=== PATIENT | female | born 1975 | race Caucasian/White ===

== ENCOUNTER 2018-08-27 14:42 | Inpatient (IN) | payer OTHER ==
[~2018-08-27] VITALS: Ht 154.9 cm; Wt 125.9 kg
--- NOTE | ~2018-08-27 | HC ---
[facility] [place] [address] CONSULTATION Name: ERYN LEONARD Room #: 432- ADM IN M.R.#: [id number] Admission: 08/27/18 Attend Phys: Phu Alvarado MD Discharge: Date of : 77 Report #: [id number] THIS REPORT FOR: //name// CC: Phu Alvarado DATE OF SERVICE: 08/30/2018 WOUND CARE CONSULTATION PERSONAL PHYSICIAN: Phu Alvarado M.D. CHIEF COMPLAINT: Right lower extremity cellulitis. HISTORY OF PRESENT ILLNESS: This is a 42-year-old white female who I had seen at [facility] last week for progressive cellulitis of her right lower extremity. The patient had previously been admitted to [facility] for that same cellulitis and received 1 week of IV antibiotics and then was transferred to [facility] for further rehabilitation. However, I was asked to see the patient because of increasing erythema, warmth and tenderness of the leg and it appeared that the patient had ongoing cellulitis that was now failing outpatient oral therapy. The patient was admitted to the hospital under the care of Dr. Alvarado, started on IV antibiotics and was seen by Infectious Disease, Dr. Madrid. The patient today states her pain is markedly improved with the morphine, Silvadene compound that we added to her leg and then lightly covered this with Kerlix. The patient cannot tolerate tight wraps because of the pain. The patient admits that she has been very noncompliant as an outpatient with her lymphedema in regards to any type of compression. The patient has no open wounds at this time. PAST MEDICAL HISTORY: Significant for chronic hypertension, chronic liver disease, migraines, hyperthyroidism and chronic lymphedema. CURRENT MEDICATIONS: Multiple, I reviewed the patient's medication list. She is on IV antibiotics. DRUG ALLERGIES: TRAMADOL, KETOROLAC AND MELATONIN. SOCIAL HISTORY: The patient is . She does not smoke or drink alcohol. FAMILY HISTORY: Not pertinent to current medical condition. REVIEW OF SYSTEMS: CONSTITUTIONAL: The patient was having chills prior to the onset of this cellulitis, but denies fever at this time. EYES: No complaints. ENT: No complaints. [facility] [address] [place] [address] CONSULTATION Name: ERYN LEONARD Room #: 432-P [facility] IN ..#: [id number] Admission: 08/27/18 Attend Phys: Phu Alvarado MD Discharge: Date of : 77 Report #: [id number] CARDIAC: The patient denies chest pain or palpitations. Has chronic lower extremity lymphedema, right leg much greater than left. RESPIRATORY: The patient denies shortness of breath, cough or wheezes. GASTROINTESTINAL: The patient complains of decreased appetite, but no nausea, vomiting or diarrhea. GENITOURINARY: The patient denies urgency or frequency, but does complain of a possible vaginal bleeding, which is unusual for her. MUSCULOSKELETAL: No complaints. SKIN: The patient has cellulitis on the right lower extremity, which is extremely painful. PHYSICAL EXAMINATION: VITAL SIGNS: Temperature 36.7, pulse 79, respiratory rate 18 and BP 124/73. GENERAL: This is an alert and oriented x 3, morbidly obese white female who is in [id number] distress and pain. HEENT: Normocephalic, atraumatic. Mucous membranes are dry. Pupils are round. Sclerae are white. NECK: Supple and nontender. LUNGS: Clear. HEART: Regular, without murmur. ABDOMEN: Obese, soft, otherwise nontender. EXTREMITIES: Evaluation of the lower extremities reveals 4+ edema of the right lower extremity with increased erythema, warmth and tenderness; however, this is much improved from my exam 3 days ago. Distal neurovascular is otherwise intact. There are no open ulcerations noted on the right lower extremity. On the left lower extremity, the patient has chronic 3- to 4+ lymphedema, but no increased erythema or warmth. There are no open ulcerations on the left lower extremity. NEUROLOGIC: Cranial nerves 2-12 are grossly intact. Motor and sensory grossly intact. LABORATORY DATA: White count 2.1, hemoglobin 9.0 and platelet count is 102,000. Sed rate 71. Albumin is 2.1. C-reactive protein is 36.4. IMPRESSION: 1. Progressive cellulitis, right lower extremity, failed outpatient therapy, now improving on IV antibiotics. 2. Chronic bilateral lower extremity lymphedema. 3. Morbid obesity. 4. Severe protein-calorie malnutrition with albumin of 2.1. 5. Generalized debility. PLAN: At this time, the patient is doing well with the current regimen of morphine, Silvadene to the entire right lower extremity below the knee, covered this with Xeroform, ABDs and Kerlix twice daily. The patient is receiving parenteral oral pain medicines per Dr. Alvarado. Infectious Disease is covering [facility] [address] [place] [address] CONSULTATION Name: ERYN LEONARD Room #: [facility]-P ADM IN M.R.#: [id number] Admission: 08/27/18 Attend Phys: Phu Alvarado MD Discharge: Date of : 77 Report #: [id number] the patient with IV antibiotics. We will make sure we maximize the patient's oral protein supplementation for healing. The patient will also utilize physical and occupational therapy for strengthening. I appreciate the ability to consult. We will continue to follow the patient. <ELECTRONICALLY SIGNED> By: Sidney Nieves MD 09/01/18 0942 [id number] [id number] Sidney Nieves MD /nt
--- NOTE | ~2018-08-27 | HC ---
[facility] [place] [address] CONSULTATION Name: ERYN LEONARD Room #: 432- ADM IN M.R.#: [id number] Admission: 08/27/18 Attend Phys: Phu Alvarado MD Discharge: Date of : 77 Report #: [id number] THIS REPORT FOR: //name// CC: Phu Alvarado DATE OF SERVICE: 08/29/2018 ATTENDING PHYSICIAN: Phu Alvarado M.D. REASON FOR CONSULTATION: Cellulitis, right leg. HISTORY OF PRESENT ILLNESS: The patient is a 42-year-old white woman with history previous episode of cellulitis, right lower extremity for which she was admitted to [facility]. She tells me she had no primary physician and she just goes through the Emergency Room. After a week hospitalization at [facility], she was transferred to [facility] where her right leg cellulitis failed to improve and she is transferred to [place] for continuation of treatment. Discussed the patient's situation with Dr. Alvarado, recommended adding vancomycin. The patient rather restless and finally, I figured out that the light is bothering her eyes. When I shed off the lights, she becomes calmer and able to participate in a more tranquil manner in the history and physical exam. SOCIAL HISTORY: She is , mother of 3 children from 9 to 21. She had 3 previous sections. PAST MEDICAL HISTORY: Hypertension. History of pancytopenia and this was not quite finalized as far as diagnosis is concerned. The patient also tells me she had enlarged liver, which makes me suspect she might have a steatohepatitis or liver cirrhosis. There is a history of migraines and hyperthyroidism as well. C-sections x 3. DRUG ALLERGIES: TRAMADOL, KETOROLAC, MELATONIN. MEDICATIONS: The patient is presently on treatment with subcutaneous heparin 30 mg daily, Silvadene topical to legs, vancomycin 1000 mg IV every 8 hours, p.r.n. ondansetron, p.r.n. lorazepam, p.r.n. oxycodone, ceftriaxone 1 g IV daily and normal saline at 1000 mL every 10 hours. SOCIAL HISTORY: See H and P and as above. FAMILY HISTORY: Hypertension (father). REVIEW OF SYSTEMS: Migraine headaches. Chronic pancytopenia. Enlarged liver. PHYSICAL EXAMINATION: [facility] [address] [place] [address] CONSULTATION Name: ERYN LEONARD Room #: 432-P [facility] IN [place]#: [id number] Admission: 08/27/18 Attend Phys: Phu Alvarado MD Discharge: Date of : 77 Report #: [id number] GENERAL: Morbidly obese woman, not toxic looking. VITAL SIGNS: Temperature 98.9, pulse 87, respirations 18, BP 130/91, height 5 feet 1 inches, weight 277 pounds. HEENMT: Within range. NECK: Supple. LUNGS: Clear. BREASTS: Deferred. HEART: S1, S2. No gallop or murmur. ABDOMEN: Obese, soft, difficult to examine. PELVIC AND RECTAL: Deferred. EXTREMITIES: Reveal lymphedematous changes both legs, right worse than left with cellulitic changes, right leg. NEUROLOGIC: Grossly within normal limits. LABORATORY DATA: Sodium 140, potassium 4.2, BUN 13, creatinine 0.7, calcium 8, albumin 2.1 g/dL. D-dimer is 1.84. WBC 2100, hemoglobin 9 g/dL, MCV elevated at 101, platelets 102,000. ASSESSMENT: 1. Cellulitis, right lower extremity. 2. Lymphedema of his lower extremities. 3. Morbid obesity. 4. Pancytopenia, question etiology. 5. Possible underlying chronic liver disease. 6. Hypertension. 7. History of migraine headaches. SUGGESTIONS: Recommend continue coverage with vancomycin and Rocephin. ESR, CRP and MRSA screen. We will obtain old records from [facility]. We will try to address the issue of pancytopenia. Dr. Alvarado, thank you for requesting my suggestions in the care of your patient. <ELECTRONICALLY SIGNED> By: Abiel Madrid MD 08/30/18 1026 0733 28 Abiel Madrid MD /nt
--- NOTE | ~2018-08-27 | 2DMMODE ---
[facility] [address] [place] [address] 2 D/M-MODE ECHOCARDIOGRAM Name: ERYN LEONARD Room #: 432-P ADM IN M.R.#: [id number] Admission: 08/27/18 Attend Phys: Phu Alvarado, Discharge: Date of : 77 Date of Service: 08/30/18 1445 Report #: [id number] THIS REPORT FOR: //name// APPROVED REPORT Study performed: 08/30/2018 13:49:13 EXAM: Comprehensive 2D, Doppler, and color-flow Echocardiogram Patient Location: Echo lab Room #: [facility] Status: routine BSA: 2.17 HR: 83 bpm BP: 132/92 mmHg Rhythm: NSR Other Information Study Quality: Adequate Technically limited study due to body habitus. Indications Pulmonary edema. 2D Dimensions RVDd: 37.77 mm IVSd: 11.00 (7-11mm) LVOT Diam: 19.78 (18-24mm) LVDd: 51.23 mm PWd: 12.00 (7-11mm) Ascending Ao: 26.98 (22-36mm) LVDs: 31.91 (25-40mm) Aortic Root: 28.73 mm Volumes Left Atrial Volume (Systole) Single Plane 4CH: 64.69 mL Single Plane 2CH: 77.16 mL LA ESV Index: 35.00 mL/m2 Aortic Valve AoV Peak Homar.: 1.72 m/s AO Peak Gr.: 11.83 mmHg LVOT Max P.68 mmHg LVOT Max V: 1.19 m/s JOHANNE Vmax: 2.13 cm2 Mitral Valve E/A Ratio: 1.3 [facility] [address] [address] 2 D/M-MODE ECHOCARDIOGRAM Name: ERYN LEONARD Room #: [address] [place] [address] [place] [facility]#: [id number] Admission: 08/27/18 Attend Phys: Phu Alvarado, Discharge: Date of : 77 Date of Service: 08/30/18 1445 Report #: [id number] MV Decel. Time: 160.28 ms MV E Max Homar.: 1.31 m/s MV A Homar.: 1.04 m/s MV PHT: 46.48 ms IVRT: 83.04 ms Pulmonary Valve PV Peak Homar.: 0.98 m/s PV Peak Gr.: 3.86 mmHg Pulmonary Vein P Vein S: 0.62 m/s P Vein A: 0.44 m/s P Vein D: 0.54 m/s P Vein S/D Ratio: 1.15 Tricuspid Valve TR Peak Hoamr.: 2.78 m/s RAP Estimate: 10.00 mmHg TR Peak Gr.: 30.82 mmHg PA Pressure: 41.00 mmHg Left Ventricle The left ventricle is normal size. There is normal LV segmental wall motion. Borderline concentric left ventricular hypertrophy. Left ventricular systolic function is normal. LVEF is 60-65%. The left ventricular diastolic function is normal. Right Ventricle The right ventricle is normal size. The right ventricular systolic function is normal. Atria Left atrium is mildly dilated. Right atrium is mildly dilated. Aortic Valve The aortic valve is grossly normal in structure. No aortic regurgitation is present. There is no aortic valvular stenosis. Mitral Valve The mitral valve is normal in structure. Mild mitral regurgitation. Tricuspid Valve The tricuspid valve is normal in structure. Mild tricuspid regurgitation. Estimated PAP is 40-45mmHg. [facility] [address] [place] [address] 2 D/M-MODE ECHOCARDIOGRAM Name: ERYN LEONARD Room #: 432-[facility] IN .R.#: [id number] Admission: 08/27/18 Attend Phys: Phu Alvarado, Discharge: Date of : 77 Date of Service: 08/30/18 1445 Report #: [id number] Pulmonic Valve Pulmonic valve is not well visualized. Trace pulmonic regurgitation. Great Vessels The ascending aorta is normal in size. IVC measures at the upper limits of normal and collapses <50% with inspiration. Pericardium There is no pericardial effusion. <Conclusion> The left ventricle is normal size. LVEF is 60-65%. Left atrium is mildly dilated. Right atrium is mildly dilated. The aortic valve is grossly normal in structure. The mitral valve is normal in structure. Mild mitral regurgitation. The tricuspid valve is normal in structure. Mild tricuspid regurgitation. Estimated PAP is 40-45mmHg. Pulmonic valve is not well visualized. Trace pulmonic regurgitation. There is no pericardial effusion. <ELECTRONICALLY SIGNED> By: Tony Zarco MD 08/30/18 1445 1445 144 Tony Zarco MD /INF
[2018-08-27 17:06] VITALS: BP 130/91
[2018-08-27 19:08] VITALS: BP 151/83
[2018-08-27] MEDS ORDERED: AMBIEN 5 MG TABL5 M1 PO (23:07)
[2018-08-27] MEDS ORDERED: EXCEDRIN MIGRA1 EAC1 PO (23:08)
[2018-08-27] MEDS ORDERED: LYRICA 50 MG50 MG PO (23:09)
[2018-08-27] MEDS ORDERED: MULTI VITAMIN1 EACH PO (23:10)
[2018-08-27] MEDS ORDERED: OXYCODONE HCL 55 MG PO (23:12)
[2018-08-27] MEDS ORDERED: NORCO 5-325 TA1 EACH PO (23:13)
[2018-08-27] MEDS ORDERED: LASIX 40 MG TAB40 M2 PO (23:14)
[2018-08-28 04:44] VITALS: BP 117/75
[2018-08-28 05:46] LABS: HEMOGLOBIN 8.4 gm/dL (12.0-15.0)
[2018-08-28 05:47] LABS: HEMATOCRIT 24.4 % (37.0-47.0); MCH 34.9 pg (26.0-34.0); MCHC 34.3 g/dL (28.0-37.0); MCV 101.9 fL (80.0-100.0); RBC 2.4 mil/uL (4.20-5.00); RDW 13.9 % (10.5-14.5)
[2018-08-28 05:51] LABS: CALCIUM 7.8 mg/dL (8.5-10.1); CREATININE 0.7 mg/dL (0.6-1.0); POTASSIUM 4.2 mmol/L (3.5-5.1)
[2018-08-28 07:43] VITALS: BP 123/76
[2018-08-28 19:18] VITALS: BP 137/78
[2018-08-28 19:53] LABS: HEMATOCRIT 25.5 % (37.0-47.0); MCH 35.8 pg (26.0-34.0); MCHC 35.2 g/dL (28.0-37.0); MCV 101.7 fL (80.0-100.0); RBC 2.51 mil/uL (4.20-5.00); RDW 14.2 % (10.5-14.5); WBC 2.1 thou/uL (4.0-11.0)
[2018-08-28 20:16] LABS: ALBUMIN 2.1 g/dL (3.4-5.0); CREATININE 0.7 mg/dL (0.6-1.0); POTASSIUM 4.2 mmol/L (3.5-5.1); TOTAL BILIRUBIN 0.8 mg/dL (<0.1-1.0); TOTAL PROTEIN 5.9 g/dL (6.4-8.2)
[2018-08-29 04:36] VITALS: BP 135/93
[2018-08-29 07:40] VITALS: BP 151/89
[2018-08-29 19:34] LABS: URINE BILIRUBIN NEGATIVE (Negative); URINE BLOOD 2+ (Negative); URINE CLARITY CLEAR; URINE COLOR YELLOW; URINE GLUCOSE-RANDOM* NEGATIVE (Negative); URINE KETONES NEGATIVE (Negative); URINE LEUKOCYTES-REFLEX NEGATIVE (Negative); URINE NITRITE-REFLEX NEGATIVE (Negative); URINE PROTEIN (DIPSTICK) NEGATIVE (Negative); URINE UROBILINOGEN 0.2 E.U./dl (0.2-1.0)
[2018-08-29 19:49] LABS: CASTS None Seen /LPF (None Seen); MUCUS >6 Heavy strn/LPF (None Seen); SQUAMOUS >10 Many /LPF (0-3)
[2018-08-29 19:50] LABS: BACTERIA-REFLEX None Seen /HPF (None Seen); CRYSTALS None Seen /LPF (None Seen); URINE WBC-REFLEX 0-5 Rare /HPF (0-5)
[2018-08-29 20:00] VITALS: BP 144/104
[2018-08-30 00:24] VITALS: BP 133/88
[2018-08-30 03:30] VITALS: BP 147/87
[2018-08-30 09:03] VITALS: BP 132/92
[2018-08-30 16:09] VITALS: BP 132/76
[2018-08-30 19:45] VITALS: BP 118/64
[2018-08-31 04:28] VITALS: BP 124/73
[2018-08-31 07:55] VITALS: BP 140/85
[2018-08-31 16:50] VITALS: BP 134/81
[2018-08-31 21:20] VITALS: BP 126/70
[2018-09-01 04:55] VITALS: BP 101/62
[2018-09-01 08:54] VITALS: BP 147/88
[2018-09-01] MEDS ORDERED: KEFLEX500 M1 PO (14:46)
[2018-09-01] MEDS ORDERED: SSD CREAM 1% 5050 GM TOP (14:47)
== END 2018-09-01 17:47 | DRG 871 ==
LOC: 4E 14:42
PROVIDERS: Family Medicine
PROC: 05HY33Z Insertion of Infusion Device into Upper Vein, Percutaneous Approach (ICD-10-PCS; principal; 2018-08-27)
DX: A41.9 Sepsis, unspecified organism (principal); E43 Unspecified severe protein-calorie malnutrition; I50.21 Acute systolic (congestive) heart failure; L03.115 Cellulitis of right lower limb; D61.818 Other pancytopenia; Z68.43 Body mass index [BMI] 50.0-59.9, adult; L03.116 Cellulitis of left lower limb; I11.0 Hypertensive heart disease with heart failure; G43.909 Migraine, unspecified, not intractable, without status migrainosus; I89.0 Lymphedema, not elsewhere classified; E66.01 Morbid (severe) obesity due to excess calories; E05.90 Thyrotoxicosis, unspecified without thyrotoxic crisis or storm; K76.9 Liver disease, unspecified; F41.9 Anxiety disorder, unspecified; N93.9 Abnormal uterine and vaginal bleeding, unspecified; E03.9 Hypothyroidism, unspecified; Z88.8 Allergy status to other drugs, medicaments and biological substances; Z79.899 Other long term (current) drug therapy; Z79.82 Long term (current) use of aspirin; Z98.891 History of uterine scar from previous surgery; Z82.49 Family history of ischemic heart disease and other diseases of the circulatory system
CPT/HCPCS: 10783; 27000